=== PATIENT | male | born 1985 ===

== ENCOUNTER 2021-08-28 01:35 | Emergency (ER) | payer BC, OTHER ==
[2021-08-28] MEDS ORDERED: Ibuprofen 600 MG Tab PO ONE (02:14)
[2021-08-28] MEDS ORDERED: Diphtheria,Pertussis(Acell),Tetanus Vaccine 0.5 ML Syringe IM ONE (02:15)
== END 2021-08-28 03:42 | disposition home or self-care (01) ==
LOC: MW.ED 01:35
DX: M25.511 Pain in right shoulder (principal); Z23 Encounter for immunization
CPT/HCPCS: 73030; 90471; 90715; 99283; A9270